=== PATIENT | male | born 1965 | race Two or more races ===

== ENCOUNTER 2020-03-25 14:20 | Emergency (ER) | payer BC, OTHER ==
[~2020-03-25] VITALS: Ht 157.5 cm; Wt 63.7 kg
--- NOTE | 2020-03-25 15:00 | NUR ---
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
[2020-03-25 15:17] LABS: BASOPHILS % (AUTO) 0 % (0-1); EOSINOPHILS % (AUTO) 0 % (1-7); LYMPHOCYTES % (AUTO) 17 % (22-44); MEAN CORPUSCULAR HEMOGLOBIN 29.8 pg (27.5-34.5); MEAN CORPUSCULAR HGB CONC 34.7 g/dL (33.2-36.2); MEAN PLATELET VOLUME 8.6 fL (7.4-10.4); MONOCYTES % (AUTO) 7 % (2-9); NEUTROPHILS % (AUTO) 76 % (42-75); PLATELET COUNT 159 x10^3/uL (130-400); RED BLOOD COUNT 4.96 x10^6/uL (4.38-5.82); RED CELL DISTRIBUTION WIDTH 13.1 % (9.4-14.8)
[2020-03-25 15:19] LABS: MD NO
[2020-03-25 15:33] LABS: ALANINE AMINOTRANSFERASE 68 U/L (12-78); ALBUMIN 3.9 g/dL (3.4-5.0); ANION GAP 5 mmol/L (5-15); CALCIUM 8.3 mg/dL (8.5-10.1); CHLORIDE 102 mmol/L (98-107); CREATININE 0.98 mg/dL (0.7-1.3)
[2020-03-25 15:36] LABS: ALKALINE PHOSPHATASE 108 U/L (45-117); BILIRUBIN,TOTAL 0.4 mg/dL (0.2-1.0); TOTAL PROTEIN 7.6 g/dL (6.4-8.2)
[2020-03-25 15:37] LABS: MICROSCOPIC AUTO
[2020-03-25] MEDS ORDERED: IBUPROFEN 800 MG TABLET ONE (15:46)
[2020-03-25] MEDS ORDERED: SODIUM CHLORIDE 0.9% 1,000ML IVBOLUS ONE (16:00)
[2020-03-25] MEDS ORDERED: IBUPROFEN 800 MG TABLET PO ONE (16:00)
[2020-03-25] MEDS ORDERED: DULO20CA45 PO (16:00)
--- NOTE | 2020-03-25 16:00 | NUR ---
TASK RN: PT MEDICATED PER EMAR FOR FEVER. IV ESTABLISHED, BC X1 DRAWN WITH IV START. IVF HUNG PER ORDER.
[2020-03-25] MEDS ORDERED: CEFTRIAXONE PMX 1GM/50ML 50 ML ONE (16:57)
[2020-03-25] MEDS ORDERED: AZITHROMYCIN 500 MG in SODIUM CHLORIDE 0.9% 250 ML IV ONE (17:00)
[2020-03-25] MEDS ORDERED: CEFTRIAXONE PMX 1GM/50ML 50 ML IV ONE (17:00)
--- NOTE | 2020-03-25 17:05 | NUR ---
Rocephin infusing. Pt requesting food and drink- asking provider if that is ok. Updated pt on plan.
--- NOTE | 2020-03-25 17:29 | NUR ---
Rocephin infusion complete. Azithromycin now infusing 250mL/hr
[2020-03-25] MEDS ORDERED: SODIUM CHLORIDE FLUSH 10ML SYR IVF PRN (17:30)
[2020-03-25] MEDS ORDERED: PANT20TA4 PO (17:59)
[2020-03-25] MEDS ORDERED: LISI-170 PO (17:59)
--- NOTE | 2020-03-25 18:30 | NUR ---
Admitting provider at bedside. Pt explaining to provider that he is hungry, feeling better, and wants to go home and not be admitted. 02 sats currenty 94%, temp 98.7 oral. Provided pt sandwich and chips per MD approval. Admitting provider will convene with ED provider to decide to discharge pt or admit. Will likely discharge.
--- NOTE | 2020-03-25 19:08 | NUR ---
Coordinating for pt to be discharged from ED by ED provider- ED provider that initially saw pt is gone.
[2020-03-25 19:46] VITALS: BP 108/76
--- NOTE | 2020-03-25 19:53 | NUR ---
Pt agrees with and understands discharge plan, instructions, and prescriptions. Will follow up to ED if symptoms become worse. IV removed, catheter intact, hemostasis achieved, dressing applied.
== END 2020-03-25 19:56 | disposition home or self-care (01) ==
LOC: ED 17:34 → UNDOADMIN 17:53 → EDIP 17:53 → ED 19:56
DX: U07.1 COVID-19 (principal); A41.9 Sepsis, unspecified organism; J15.9 Unspecified bacterial pneumonia; J12.9 Viral pneumonia, unspecified; R09.02 Hypoxemia; R11.0 Nausea; R10.10 Upper abdominal pain, unspecified; R00.0 Tachycardia, unspecified; I10 Essential (primary) hypertension
CPT/HCPCS: 36415; 71045; 80053; 81001; 83605; 83690; 84145; 85025; 87040; 87635; 93005; 96361; 96365; 96368; 99285; J0456; J0696; J7030; J7050

== ENCOUNTER 2020-03-26 17:47 | Inpatient (IN) | payer OTHER ==
[~2020-03-26] VITALS: Ht 157.5 cm; Wt 69.1 kg
[~2020-03-26 17:47] MED LIST: DULO20CA45 PO; LISI-170 PO; PANT20TA4 PO
--- NOTE | 2020-03-26 17:56 | NUR ---
shank rander: EKG done in triage
[2020-03-26] MEDS ORDERED: SODIUM CHLORIDE FLUSH 10ML SYR IVF ONE (18:00)
--- NOTE | 2020-03-26 19:57 | NUR ---
PATIENT RESTING IN BED TACHYPNEIC AND REQUIRING SUPPLEMENTAL OXYGEN AT 3L VIA NC. ON 2L VIA NC PATIENT INCREASED FROM 87% TO 89%. HE WAS 87% ON RA. AT BEDSIDE. CALL RATLIFF IN REACH. SAFETY MAINTAINED. WILL CONTINUE TO MONITOR.
--- NOTE | 2020-03-26 20:15 | NUR ---
asked to leave due to patient being under investigation for COVID and test pending. she was understanding. patient in NAD. on 3L via NC. c/o of intermittent CP with cough and deep breaths. call franco in reach
--- NOTE | 2020-03-26 21:14 | NUR ---
Dr. Merrill called and notified of 100.8 fever and CP continuingand patient requesting pain medication. he states he will place orders.
[2020-03-26] MEDS ORDERED: BISACODYL 10 MG SUPP PR PRN (21:30)
[2020-03-26] MEDS ORDERED: OXYcodone IR 5MG TABLET PO PRN (21:30)
[2020-03-26] MEDS ORDERED: PROMETHAZINE 25 MG/ML, 1ML IM PRN (21:30)
[2020-03-26] MEDS ORDERED: ONDANSETRON ODT 4 MG PO PRN (21:30)
[2020-03-26] MEDS ORDERED: DOCUSATE 100 MG CAPSULE PO PRN (21:30)
[2020-03-26] MEDS ORDERED: hydrALAzine 20 MG/ML, 1ML IVPush PRN (21:30)
[2020-03-26] MEDS ORDERED: POLYETHYLENE GLYCOL 17 GM PACKET PO PRN (21:30)
[2020-03-26] MEDS ORDERED: ENOXAPARIN 40 MG/0.4 ML ONE (21:32)
[2020-03-26] MEDS ORDERED: ACETAMINOPHEN 325 MG TABLET ONE (21:33)
[2020-03-26] MEDS ORDERED: MORPHINE SULFATE 4 MG/ML, 1ML ONE (21:35)
--- NOTE | 2020-03-26 21:40 | NUR ---
report given to ANDRES BEAUCHAMP
[2020-03-26] MEDS: morphine SULFATE 10 MG/ML, 1ML IVPush PRN (21:44)
[2020-03-26] MEDS: ACETAMINOPHEN 325 MG TABLET PO PRN (21:45)
[2020-03-26] MEDS: SODIUM CHLORIDE 0.9% 1,000 ML IV SCH (21:46)
[2020-03-26] MEDS: ENOXAPARIN 40 MG/0.4 ML SQ SCH (21:46)
--- NOTE | 2020-03-26 21:54 | NUR ---
patient given morphine for moderate pain of 6/10. ED does not have roxicodone stocked. will continue to monitor.
[2020-03-26 22:27] VITALS: BP 124/81
[2020-03-26 22:37] VITALS: BP 124/81
[2020-03-26] MEDS: ASCORBIC ACID 500 MG TABLET PO SCH (22:59)
[2020-03-26] MEDS: DEXAMETHASONE 4 MG/ML, 1ML IVPush SCH (22:59)
[2020-03-26] MEDS: CEFTRIAXONE PMX 2GM/50ML 50 ML IVPB SCH (23:14)
[2020-03-27] MEDS: AZITHROMYCIN 500 MG in SODIUM CHLORIDE 0.9% 250 ML IV SCH (00:02)
[2020-03-27 01:59] VITALS: BP 105/70
[2020-03-27 04:56] LABS: BASOPHILS % (AUTO) 0 % (0-1); EOSINOPHILS % (AUTO) 0 % (1-7); LYMPHOCYTES % (AUTO) 12 % (22-44); MEAN CORPUSCULAR HEMOGLOBIN 29.8 pg (27.5-34.5); MEAN CORPUSCULAR HGB CONC 34.3 g/dL (33.2-36.2); MEAN PLATELET VOLUME 8.8 fL (7.4-10.4); MONOCYTES % (AUTO) 3 % (2-9); NEUTROPHILS % (AUTO) 85 % (42-75); PLATELET COUNT 172 x10^3/uL (130-400); RED BLOOD COUNT 4.42 x10^6/uL (4.38-5.82); RED CELL DISTRIBUTION WIDTH 13.2 % (9.4-14.8)
[2020-03-27 04:58] LABS: MD NO
[2020-03-27 05:08] LABS: ALBUMIN 3.2 g/dL (3.4-5.0); ANION GAP 5 mmol/L (5-15); CALCIUM 8.2 mg/dL (8.5-10.1); CHLORIDE 107 mmol/L (98-107)
[2020-03-27 05:18] LABS: ALANINE AMINOTRANSFERASE 67 U/L (12-78); ALKALINE PHOSPHATASE 128 U/L (45-117); BILIRUBIN,TOTAL 0.3 mg/dL (0.2-1.0); CHOL/HDL RATIO 3.2; CHOLESTEROL, TOTAL 153 mg/dL (140-239); CREATININE 0.92 mg/dL (0.7-1.3); HDL CHOL % 31 % (26-37); HDL CHOLESTEROL (DIRECT) 48 mg/dL (40-60); LDL CHOLESTEROL,CALCULATED 79 mg/dL (54-169); LDL/HDL RATIO 1.6 (0.5-3.0); TOTAL PROTEIN 6.9 g/dL (6.4-8.2); TRIGLYCERIDES 129 mg/dL (50-200); VLDL CHOLESTEROL 26 mg/dL (0-25)
[2020-03-27] MEDS: SODIUM CHLORIDE 0.9% 1,000 ML IV SCH (08:30)
[2020-03-27] MEDS: PANTOPRAZOLE 20MG TABLET PO SCH (08:51)
[2020-03-27] MEDS: DULOXETINE 20 MG CAPSULE.DR PO SCH (08:51)
[2020-03-27] MEDS: DEXAMETHASONE 4 MG/ML, 1ML IVPush SCH (08:51)
[2020-03-27] MEDS: ENOXAPARIN 40 MG/0.4 ML SQ SCH ×2 (08:51→21:30)
[2020-03-27] MEDS: CHOLECALCIFEROL 5,000u TAB PO SCH (08:52)
[2020-03-27] MEDS: ASCORBIC ACID 500 MG TABLET PO SCH ×2 (08:52→21:26)
[2020-03-27] MEDS: LISINOPRIL 20 MG TABLET PO SCH (08:52)
[2020-03-27] MEDS: ZINC SULFATE 220 MG CAPSULE PO SCH (08:52)
[2020-03-27 14:31] VITALS: BP 126/78
[2020-03-27] MEDS ORDERED: GUAIFENESIN 200 MG TABLET PO SCH (16:00)
[2020-03-27] MEDS ORDERED: ASCORBIC ACID 500 MG TABLET PO SCH (18:30)
[2020-03-27 19:52] VITALS: BP 124/81
[2020-03-27] MEDS: MELATONIN 3 MG TABLET PO SCH (21:00)
[2020-03-27] MEDS: ACETAMINOPHEN 325 MG TABLET PO PRN (21:26)
[2020-03-27] MEDS: ONDANSETRON 2MG/ML, 2ML IVPush PRN (21:27)
[2020-03-27] MEDS: GUAIFENESIN ER 600 MG TABLET PO SCH (21:27)
[2020-03-27] MEDS: morphine SULFATE 10 MG/ML, 1ML IVPush PRN (21:28)
[2020-03-27] MEDS: CEFTRIAXONE PMX 2GM/50ML 50 ML IVPB SCH (23:16)
[2020-03-28 00:01] VITALS: BP 97/62
[2020-03-28] MEDS: AZITHROMYCIN 500 MG in SODIUM CHLORIDE 0.9% 250 ML IV SCH ×2 (00:04→23:33)
[2020-03-28 07:35] VITALS: BP 119/77
[2020-03-28] MEDS: ZINC SULFATE 220 MG CAPSULE PO SCH (09:25)
[2020-03-28] MEDS: DULOXETINE 20 MG CAPSULE.DR PO SCH (09:26)
[2020-03-28] MEDS: CHOLECALCIFEROL 5,000u TAB PO SCH (09:26)
[2020-03-28] MEDS: ASCORBIC ACID 500 MG TABLET PO SCH ×2 (09:26→20:45)
[2020-03-28] MEDS: GUAIFENESIN ER 600 MG TABLET PO SCH ×2 (09:26→20:46)
[2020-03-28] MEDS: LISINOPRIL 20 MG TABLET PO SCH (09:26)
[2020-03-28] MEDS: DEXAMETHASONE 4 MG/ML, 1ML IVPush SCH (09:26)
[2020-03-28] MEDS: ACETAMINOPHEN 325 MG TABLET PO PRN ×2 (09:26→16:24)
[2020-03-28] MEDS: PANTOPRAZOLE 20MG TABLET PO SCH (09:26)
[2020-03-28] MEDS: THIAMINE 100MG TABLET PO SCH (09:27)
[2020-03-28] MEDS: ENOXAPARIN 40 MG/0.4 ML SQ SCH ×2 (09:27→20:45)
[2020-03-28 12:20] VITALS: BP 119/76
[2020-03-28] MEDS: morphine SULFATE 10 MG/ML, 1ML IVPush PRN ×2 (17:43→21:52)
[2020-03-28 18:45] VITALS: BP 122/80
[2020-03-28] MEDS: MELATONIN 3 MG TABLET PO SCH (20:45)
[2020-03-28] MEDS: ONDANSETRON 2MG/ML, 2ML IVPush PRN (21:23)
[2020-03-28] MEDS: CEFTRIAXONE PMX 2GM/50ML 50 ML IVPB SCH (21:52)
[2020-03-29 00:38] VITALS: BP 125/81
[2020-03-29 05:19] LABS: BASOPHILS % (AUTO) 0 % (0-1); EOSINOPHILS % (AUTO) 0 % (1-7); LYMPHOCYTES % (AUTO) 5 % (22-44); MEAN CORPUSCULAR HGB CONC 33.7 g/dL (33.2-36.2); MEAN PLATELET VOLUME 8.7 fL (7.4-10.4); MONOCYTES % (AUTO) 5 % (2-9); NEUTROPHILS % (AUTO) 89 % (42-75); PLATELET COUNT 279 x10^3/uL (130-400); RED BLOOD COUNT 4.35 x10^6/uL (4.38-5.82); RED CELL DISTRIBUTION WIDTH 13.2 % (9.4-14.8)
[2020-03-29 05:29] LABS: D-DIMER 0.26 ug/mlFEU (0.00-0.52)
[2020-03-29 05:32] LABS: ALBUMIN 3.1 g/dL (3.4-5.0); ANION GAP 3 mmol/L (5-15); CALCIUM 8.6 mg/dL (8.5-10.1); CHLORIDE 104 mmol/L (98-107)
[2020-03-29 05:38] LABS: ALANINE AMINOTRANSFERASE 93 U/L (12-78); ALKALINE PHOSPHATASE 124 U/L (45-117); BILIRUBIN,TOTAL 0.3 mg/dL (0.2-1.0); TOTAL PROTEIN 6.8 g/dL (6.4-8.2)
[2020-03-29 05:43] LABS: MD SCAN
[2020-03-29 08:04] VITALS: BP 133/82
[2020-03-29] MEDS: CHOLECALCIFEROL 5,000u TAB PO SCH (08:48)
[2020-03-29] MEDS: PANTOPRAZOLE 20MG TABLET PO SCH (08:49)
[2020-03-29] MEDS: DEXAMETHASONE 4 MG/ML, 1ML IVPush SCH (08:49)
[2020-03-29] MEDS: DULOXETINE 20 MG CAPSULE.DR PO SCH (08:49)
[2020-03-29] MEDS: ZINC SULFATE 220 MG CAPSULE PO SCH (08:49)
[2020-03-29] MEDS: ASCORBIC ACID 500 MG TABLET PO SCH ×2 (08:49→21:36)
[2020-03-29] MEDS: THIAMINE 100MG TABLET PO SCH (08:50)
[2020-03-29] MEDS: LISINOPRIL 20 MG TABLET PO SCH (08:50)
[2020-03-29] MEDS: ENOXAPARIN 40 MG/0.4 ML SQ SCH ×2 (08:50→21:34)
[2020-03-29] MEDS: GUAIFENESIN ER 600 MG TABLET PO SCH ×2 (08:50→21:34)
[2020-03-29 12:50] VITALS: BP 120/77
[2020-03-29 19:29] VITALS: BP 133/79
[2020-03-29] MEDS: MELATONIN 3 MG TABLET PO SCH (21:00)
[2020-03-29] MEDS: morphine SULFATE 10 MG/ML, 1ML IVPush PRN (21:35)
[2020-03-29] MEDS: CEFTRIAXONE PMX 2GM/50ML 50 ML IVPB SCH (21:35)
[2020-03-30 02:00] VITALS: BP 124/46
[2020-03-30 06:20] LABS: HCT (SEDRATE) 39.4 % (39.2-51.8)
[2020-03-30 06:21] LABS: BASOPHILS % (AUTO) 0 % (0-1); EOSINOPHILS % (AUTO) 0 % (1-7); LYMPHOCYTES % (AUTO) 11 % (22-44); MEAN CORPUSCULAR HEMOGLOBIN 29.6 pg (27.5-34.5); MEAN CORPUSCULAR HGB CONC 34.6 g/dL (33.2-36.2); MEAN PLATELET VOLUME 8.2 fL (7.4-10.4); MONOCYTES % (AUTO) 8 % (2-9); NEUTROPHILS % (AUTO) 81 % (42-75); PLATELET COUNT 288 x10^3/uL (130-400); RED BLOOD COUNT 4.45 x10^6/uL (4.38-5.82); RED CELL DISTRIBUTION WIDTH 12.9 % (9.4-14.8)
[2020-03-30 06:34] LABS: D-DIMER 0.4 ug/mlFEU (0.00-0.52)
[2020-03-30 06:35] LABS: ALANINE AMINOTRANSFERASE 204 U/L (12-78); ANION GAP 4 mmol/L (5-15); CALCIUM 8.4 mg/dL (8.5-10.1); CHLORIDE 107 mmol/L (98-107); CREATININE 0.71 mg/dL (0.7-1.3)
[2020-03-30 06:37] LABS: ALKALINE PHOSPHATASE 173 U/L (45-117); BILIRUBIN,TOTAL 0.5 mg/dL (0.2-1.0); TOTAL PROTEIN 7.1 g/dL (6.4-8.2)
[2020-03-30 06:55] LABS: MD SCAN
[2020-03-30 07:59] VITALS: BP 108/67
[2020-03-30] MEDS: DULOXETINE 20 MG CAPSULE.DR PO SCH (08:04)
[2020-03-30] MEDS: ASCORBIC ACID 500 MG TABLET PO SCH ×2 (08:04→20:45)
[2020-03-30] MEDS: ZINC SULFATE 220 MG CAPSULE PO SCH (08:04)
[2020-03-30] MEDS: CHOLECALCIFEROL 5,000u TAB PO SCH (08:04)
[2020-03-30] MEDS: PANTOPRAZOLE 20MG TABLET PO SCH (08:04)
[2020-03-30] MEDS: DEXAMETHASONE 4 MG/ML, 1ML IVPush SCH (08:04)
[2020-03-30] MEDS: GUAIFENESIN ER 600 MG TABLET PO SCH ×2 (08:04→20:44)
[2020-03-30] MEDS: ENOXAPARIN 40 MG/0.4 ML SQ SCH ×2 (08:05→20:44)
[2020-03-30] MEDS: LISINOPRIL 20 MG TABLET PO SCH (08:05)
[2020-03-30] MEDS: THIAMINE 100MG TABLET PO SCH (08:05)
[2020-03-30 13:33] VITALS: BP 123/80
[2020-03-30 20:41] VITALS: BP 145/98
[2020-03-30] MEDS: MELATONIN 3 MG TABLET PO SCH (20:44)
[2020-03-30] MEDS: morphine SULFATE 10 MG/ML, 1ML IVPush PRN (20:56)
[2020-03-30] MEDS: CEFTRIAXONE PMX 2GM/50ML 50 ML IVPB SCH (20:56)
[2020-03-30] MEDS: ONDANSETRON 2MG/ML, 2ML IVPush PRN (20:56)
[2020-03-30 23:40] VITALS: BP 109/75
[2020-03-30] MEDS: AZITHROMYCIN 500 MG in SODIUM CHLORIDE 0.9% 250 ML IV SCH ×2 (23:40)
[2020-03-31 08:06] VITALS: BP 113/76
[2020-03-31] MEDS: PANTOPRAZOLE 20MG TABLET PO SCH (08:09)
[2020-03-31] MEDS: GUAIFENESIN ER 600 MG TABLET PO SCH ×2 (08:09→20:38)
[2020-03-31] MEDS: ZINC SULFATE 220 MG CAPSULE PO SCH (08:09)
[2020-03-31] MEDS: THIAMINE 100MG TABLET PO SCH (08:09)
[2020-03-31] MEDS: CHOLECALCIFEROL 5,000u TAB PO SCH (08:09)
[2020-03-31] MEDS: ASCORBIC ACID 500 MG TABLET PO SCH ×2 (08:09→20:39)
[2020-03-31] MEDS: LISINOPRIL 20 MG TABLET PO SCH (08:10)
[2020-03-31] MEDS: DULOXETINE 20 MG CAPSULE.DR PO SCH (08:10)
[2020-03-31] MEDS: ONDANSETRON 2MG/ML, 2ML IVPush PRN ×2 (11:58→20:37)
[2020-03-31] MEDS: ACETAMINOPHEN 325 MG TABLET PO PRN (11:58)
[2020-03-31 14:20] VITALS: BP 121/80
[2020-03-31] MEDS ORDERED: DEXAMETHASONE 4 MG/ML, 1ML IVPush ONE (15:43)
[2020-03-31] MEDS: morphine SULFATE 10 MG/ML, 1ML IVPush PRN ×2 (16:04→20:38)
[2020-03-31 20:07] VITALS: BP 155/90
[2020-03-31] MEDS: MELATONIN 3 MG TABLET PO SCH (20:38)
[2020-03-31] MEDS: ENOXAPARIN 40 MG/0.4 ML SQ SCH (20:39)
[2020-03-31] MEDS: CEFTRIAXONE PMX 2GM/50ML 50 ML IVPB SCH (20:39)
[2020-03-31] MEDS: AZITHROMYCIN 500 MG in SODIUM CHLORIDE 0.9% 250 ML IV SCH (23:29)
[2020-04-01 02:04] VITALS: BP 101/66
[2020-04-01 06:43] LABS: ALBUMIN 3.3 g/dL (3.4-5.0); ANION GAP 2 mmol/L (5-15); CALCIUM 9.4 mg/dL (8.5-10.1); CHLORIDE 104 mmol/L (98-107)
[2020-04-01 06:47] LABS: ALANINE AMINOTRANSFERASE 300 U/L (12-78); ALKALINE PHOSPHATASE 185 U/L (45-117); BILIRUBIN,TOTAL 0.3 mg/dL (0.2-1.0); CREATININE 0.79 mg/dL (0.7-1.3); TOTAL PROTEIN 6.8 g/dL (6.4-8.2)
[2020-04-01 07:22] VITALS: BP 141/84
[2020-04-01] MEDS: THIAMINE 100MG TABLET PO SCH (08:51)
[2020-04-01] MEDS: ZINC SULFATE 220 MG CAPSULE PO SCH (08:52)
[2020-04-01] MEDS: GUAIFENESIN ER 600 MG TABLET PO SCH (08:52)
[2020-04-01] MEDS: CHOLECALCIFEROL 5,000u TAB PO SCH (08:52)
[2020-04-01] MEDS: DULOXETINE 20 MG CAPSULE.DR PO SCH (08:52)
[2020-04-01] MEDS: PANTOPRAZOLE 20MG TABLET PO SCH (08:52)
[2020-04-01] MEDS: LISINOPRIL 20 MG TABLET PO SCH (08:52)
[2020-04-01] MEDS: ASCORBIC ACID 500 MG TABLET PO SCH (08:52)
[2020-04-01] MEDS: ENOXAPARIN 40 MG/0.4 ML SQ SCH (08:53)
[2020-04-01] MEDS ORDERED: DEXAMETHASONE 4 MG/ML, 1ML IVPush SCH (09:00)
[2020-04-01] MEDS ORDERED: CHOL500045 PO (10:20)
[2020-04-01] MEDS ORDERED: ASCO500T9 PO (10:20)
[2020-04-01] MEDS ORDERED: ZINC220C7 PO (10:20)
[2020-04-01] MEDS ORDERED: THIA100T67 PO (10:20)
[2020-04-01] MEDS ORDERED: LOPERAMIDE 2 MG CAPSULE PO PRN (12:00)
== END 2020-04-01 15:03 | disposition home or self-care (01) | DRG 177 ==
LOC: ED 19:17 → EDIP 20:21 → 3N 22:14
PROVIDERS: ADMIT Internal Medicine; ATTEND Family Medicine
DX: U07.1 COVID-19 (principal); J96.01 Acute respiratory failure with hypoxia; J12.82 Pneumonia due to coronavirus disease 2019; J15.9 Unspecified bacterial pneumonia; I10 Essential (primary) hypertension; K21.9 Gastro-esophageal reflux disease without esophagitis; Z88.8 Allergy status to other drugs, medicaments and biological substances
CPT/HCPCS: 36415; 71045; 80053; 80061; 83036; 83615; 83735; 84100; 84145; 84443; 85025; 85379; 85384; 85651; 86140; 87070; 87205; 93005; 96374; 99285; G0378; J0456; J0696; J1100; J1650; J2405; J2270; J7030; J7050